=== PATIENT | female | born 1995 | race Caucasian/White ===

== ENCOUNTER 2017-03-10 23:17 | Emergency (ER) | payer BC ==
[2017-03-11] MEDS ORDERED: hydrOXYzine 25 MG TAB ONE (02:36)
[2017-03-11] MEDS ORDERED: predniSONE 20 MG TAB ONE (02:36)
== END 2017-03-11 02:57 | disposition home or self-care (01) ==
LOC: ERS 23:17
DX: L27.0 Generalized skin eruption due to drugs and medicaments taken internally (principal); T36.3X5A Adverse effect of macrolides, initial encounter; F41.9 Anxiety disorder, unspecified
CPT/HCPCS: 99283; J7506